=== PATIENT | male | born 1975 | race Caucasian/White ===

== ENCOUNTER → 2020-10-24 07:26 | Outpatient (CLI) | payer OTHER, SELFPAY ==
[2020-10-25 19:51] LABS: SARS-CoV-2 RNA PCR Negative
== END ==
PROVIDERS: PCP Internal Medicine; Visit Provider Internal Medicine
DX: Z20.822 Contact with and (suspected) exposure to COVID-19 (principal)
CPT/HCPCS: C9803; U0003; U0005

== ENCOUNTER 2024-08-11 12:29 | Emergency (ER) | payer OTHER, SELFPAY ==
[2024-08-11 12:34] VITALS: BP 136/83; PULSE 89; RESP 18; TEMP 36.4; O2SAT 97
[2024-08-11 14:30] VITALS: BP 144/91; PULSE 77; RESP 18; O2SAT 98
[2024-08-11 14:34] VITALS: BP 143/104; PULSE 74; RESP 18; TEMP 36.4; O2SAT 99
--- NOTE | 2024-08-11 16:00 | PC.NURSE ---
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 States he will come back after the game to be examined and have imaging done. Pt ambulated to the exit without difficulty
== END 2024-08-11 16:46 | disposition left against medical advice (07) ==
LOC: ANHED 16:10
DX: S05.92XA Unspecified injury of left eye and orbit, initial encounter (principal); W21.03XA Struck by baseball, initial encounter
CPT/HCPCS: 99199